=== PATIENT | male | born 1960 | race Caucasian/White ===

== ENCOUNTER 2019-09-28 11:02 | Inpatient (IN) | payer BC, SELFPAY ==
[2019-09-28] MEDS ORDERED: Zolpidem Tartrate 5 MG TAB PO PRN (12:27)
[2019-09-28] MEDS ORDERED: hydrALAZINE 20 MG/ML VIAL SLOW IVP PRN (12:27)
[2019-09-28] MEDS ORDERED: Ondansetron PF 4 MG/2 ML Vial IVP PRN ×2 (12:27)
[2019-09-28] MEDS ORDERED: Acetaminophen 325 MG TAB PO PRN (12:27)
[2019-09-28] MEDS ORDERED: Ondansetron ODT 4 MG TAB PO PRN ×2 (12:27)
[2019-09-28] MEDS ORDERED: Non-Formulary Item 1 EACH (Levalbuterol Tartrate [Xopenex Hfa Inhaler] 1 PUFF) INH PRN (12:28)
--- NOTE | 2019-09-28 13:58 | HP ---
PRIMARY CARE PHYSICIAN: Chilango Levin MD. CHIEF COMPLAINT: Chest pressure. HISTORY OF PRESENT ILLNESS: Mr. Abreu is a very pleasant 58-year-old gentleman, who has a history of hypertension and hypothyroidism. He says that last Wednesday, he started having problems where he was having indigestion like feeling after he ate, and then he had noticed some pressure in his chest off and on when doing certain tasks. Then, last night, he had some indigestion while watching TV and it took a couple of hours to go away, then he was going to meet his sports trainer today at the park, and on the way there, he started having pressure again. He thought the exercise would make it better, but it did not. As a result, he went to see his primary care physician. They did some lab work and found that his troponin was slightly elevated. He was then sent to the [facility]. There, he was evaluated by Dr. Justin Ann. He underwent cardiac catheterization and was found to have 3- vessel coronary artery disease including the left anterior descending artery and he is being transferred here for bypass surgery. Currently, the patient does not have any complaints. He denies any chest pain. No shortness of breath. No nausea. No vomiting. When he had the chest pain, he did not have any associated symptoms and the pain would last a few hours and then resolve with rest. The patient also denies any leg pain or leg swelling and no other complaints. REVIEW OF SYSTEMS: All systems were reviewed and are negative except for that mentioned in the history of present illness. PAST MEDICAL HISTORY: Significant for hypothyroidism, hypertension, insomnia, obstructive sleep apnea, and elevated PSA. PAST SURGICAL HISTORY: He had repair of facial bone fracture due to a rugby injury. He had a cyst removed from his wrist in 1991. ALLERGIES: NO KNOWN DRUG ALLERGIES. SOCIAL HISTORY: He is single. No children. He is a nonsmoker. He occasionally drinks alcohol. No drug use. FAMILY HISTORY: Significant for obstructive sleep apnea, cataracts, and osteoarthritis, and he said his family members of heart disease in their late age of 70s and 80s. MEDICATIONS: Prior to admission included: 1. Atenolol 25 mg daily. 2. Eszopiclone 3 mg at bedtime. 3. Fenofibrate 160 mg daily. 4. Flonase nasal spray as needed. 5. Hydralazine 100 mg q.8. 6. Potassium chloride 20 mEq daily. 7. Levothyroxine 150 mcg daily. 8. Losartan 100 mg daily. 9. Nifedipine XL 60 mg daily. 10. Xopenex inhaler as needed. PHYSICAL EXAMINATION: GENERAL: He is alert and oriented. He appears to be in no acute distress. He is well developed and well nourished. VITAL SIGNS: Blood pressure was 159/84, heart rate 74, respiratory rate of 16, temperature is 97.8, O2 saturation is 97% on room air. HEENT: Pupils are equal, round, and reactive. Extraocular muscles are intact. His sclerae anicteric. Throat; no erythema, no exudates. NECK: No adenopathy. No bruits. LUNGS: Clear to auscultation. There is no wheezing. No rales. No rhonchi. CARDIOVASCULAR: He has a normal S1, S2. There is no S3 or S4. No murmurs, clicks, or rubs. ABDOMEN: Obese. It is soft, nontender, and nondistended. Positive for bowel sounds. No rebound. No guarding. No organomegaly. EXTREMITIES: There is no edema. No calf tenderness. No joint effusions. NEUROLOGIC: Cranial nerves 2 through 12 are intact. Muscle strength is 5/5 in both his upper and lower extremities. SKIN AND INTEGUMENT: No skin changes. No rash. LABS AND IMAGING: He had a CBC with white blood cell count 8.6, hemoglobin 15.1, hematocrit is 44.5, platelet count is 361. Chemistry panel is currently pending, but the troponin was 0.56. He had an EKG done at [place] which was sinus rhythm, the rate was in the 70s. Other than that, Q-wave in lead III. Otherwise normal. This is by my reading. Chest x-ray was reported as no infiltrates or effusions. ASSESSMENT AND PLAN: 1. This is a pleasant 58-year-old gentleman, who had presented to the emergency room with chest pain. He underwent urgent cardiac catheterization and was found to have 3-vessel coronary artery disease. This was at [facility] and has been transferred to our facility for bypass surgery. He will be admitted. Cardiology as well as Vascular Surgery will be consulted. We will get carotid Dopplers in preparation for bypass surgery. Continue aspirin, nitrates, and beta-rudy as tolerated. 2. Hypertension. We will continue his home medications for blood pressure and have p.r.n. hydralazine available. 3. Hypothyroidism. The patient appears to be clinically euthyroid. We will continue Synthroid and the patient will be placed on DVT and GI prophylaxis. Job ID: [id number]
[2019-09-28] MEDS: Nitroglycerin 2% Ointment 1 INCH/1 GM Packet TOP SCH ×2 (14:01→21:29)
[2019-09-28] MEDS ORDERED: HYDRALAZINE HCL PO SCH (15:00)
[2019-09-28 15:15] LABS: Troponin I 0.268 ng/mL (< 0.028)
[2019-09-28] MEDS: hydrALAZINE 25 MG TAB PO SCH ×2 (15:19→21:29)
[2019-09-28] MEDS: Carvedilol 6.25 MG TAB PO SCH (17:53)
[2019-09-28] MEDS ORDERED: Communication Order-Pharmacy FS ONE (18:14)
[2019-09-28 18:51] LABS: Hemoglobin A1c 5.3 % (4.0-6.0)
[2019-09-28 19:03] LABS: Anion Gap 12 mmol/L (10-20); BUN (Urea Nitrogen) 19 mg/dL (8.4-25.7); Calc. Creatinine Clearance 125 mL/min (70-130); Calcium 9.4 mg/dL (7.8-10.44); Carbon Dioxide 24 mmol/L (22-29); Chloride 107 mmol/L (98-107); Cholesterol 241 mg/dl (< 200 Desired); Estimated GFR-MDRD 83; Glucose 121 mg/dL (70-105); HDL Cholesterol 37 mg/dL (>60 Neg Risk); Potassium 3.7 mmol/L (3.5-5.1); Sodium 139 mmol/L (136-145)
--- NOTE | 2019-09-28 19:35 | CON ---
DATE OF CONSULTATION: HISTORY OF PRESENT ILLNESS: This is a 58-year-old gentleman, transferred from [facility] after presenting over there yesterday with some pressure in his chest with a troponin elevation of about 4. He underwent cardiac catheterization by Dr. Ann and had severe 3-vessel disease, particularly with a lot of distal disease creating a situation where he will be in incomplete revascularization. Risk factors include a family history of heart disease, but typically involving people in their 80s. He has a history of hypertension that was not very well controlled until the last couple of months. After much teeth pulling, he admitted to having an elevated cholesterol for many years, however, about 15 years ago, tried some of the statins and could not tolerate them and then went on a fast for 1 year and improved his cholesterol level, however, does not know what numbers that he was running. He sees a family physician who comes here in the community and I do not have access to any laboratory values. Otherwise, he denies any history of diabetes mellitus. HOME MEDICATIONS: 1. Xopenex. 2. Flonase. 3. Hydralazine, dose unknown. 4. Synthroid 150 mcg a day. 5. Lunesta 3 mg at bedtime. 6. Fenofibrate tablet daily. 7. Losartan daily, dose unknown. 8. Atenolol daily, dose unknown. 9. Nifedipine. 10. Procardia XL 60 mg daily. 11. Potassium. 12. K-Dur 20 mEq daily. ALLERGIES: HE REPORTS NO ALLERGIES, BUT DOES HAVE THE STATIN INTOLERANCE, BUT HE IS NOT SURE WHICH STATINS HE HAS TRIED OR DOSAGES. PAST SURGICAL HISTORY: Facial fracture as a young man playing rugby. He has also had a cyst removed from his hand and a cataract in 1 eye. 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 He lives alone. His next of kin includes mother who lives in town. The patient has never smoked. PHYSICAL EXAMINATION: GENERAL: He is alert and cooperative gentleman. VITAL SIGNS: Height 5 feet 9 inches, weight 228. NECK: No carotid bruits. CARDIAC: Regular rate and rhythm. No murmurs. LUNGS: Clear to auscultation. ABDOMEN: Obese. Nontender. No aneurysm. EXTREMITIES: He has palpable posterior tibial pulses bilaterally. He has a dressing on the right groin and dressing on the right wrist. He has no peripheral edema. NEUROLOGIC: Unremarkable. LABORATORY STUDIES: I have reviewed his cardiac catheterization and his ejection fraction appears normal. He has not had a cardiac echo by Dr. Ann, but has no cardiac murmurs. ASSESSMENT AND PLAN: He has a history of hypertension that has been poorly controlled, probably I would suggest that he will have some left ventricular hypertrophy which may be important in regard to accessing his circumflex system. His OM1 is small and diffusely diseased, non bypassable. His OM2 is large proximally, but diffusely and severely diseased distally. His OM3 is small and may not be large enough to graft with some disease in the 50% to 80% at its origin. The right coronary artery has 2 proximal 90% lesions and then a severely and diffusely diseased PDA that cannot be grafted. He has mild disease in the posterior lateral. The LAD has a proximal 90% stenosis just after the takeoff of a diagonal which has a 90% stenosis. Potential targets include an LAD diagonal main right coronary artery and possibly distal circumflex. I have had a long discussion with the patient concerning his diffuse coronary disease and the real need to control his cholesterol which I suspect is quite high and will be checked this evening. The patient is adamant that he does not want to take a statin no matter what, and so he will have to visit with his traveling auditor in regard to possible injectable cholesterol medication. Job ID: [id number]
[2019-09-28] MEDS ORDERED: Famotidine 20 MG TAB PO SCH (21:00)
--- NOTE | 2019-09-28 21:23 | ULT ---
Carotid duplex sonogram HISTORY: Vascular disease. FINDINGS: Right: Color and spectral Doppler evaluation, peak systolic velocity of 81 cm/s, and IC to CC ratio o f 0.6 suggest no hemodynamically significant stenosis within the extracranial right ICA. Antegrade flow within the vertebral artery. Left: Color and spectral Doppler evaluation, peak systolic velocity of 90 cm/s, and IC to CC ratio of 0.7 suggest no hematemesis significant stenosis within the extracranial left ICA. Antegrade flow within the vertebral artery. IMPRESSION : No significant plaque evident. No sonographic evidence of significant extracranial ICA stenosis.
[2019-09-29] MEDS ORDERED: Albuterol Sulfate 1.25 MG/3 ML NEB NEB PRN (02:15)
[2019-09-29 04:57] LABS: #Eosinphils 0.2 thou/uL (0.0-0.7); #Lymphocytes 2.1 thou/uL (1.20-3.40); #Monocytes 0.8 thou/uL (0.11-0.59); #Neutrophils 7.1 thou/uL (1.40-6.50); %Basophils 0.3 % (0.0-1.0); %Eosinophils 1.9 % (0.0-10.0); %Lymphocytes 20.4 % (21.0-51.0); %Neutrophils 69.4 % (42.0-75.0); Hemoglobin 13.7 g/dL (14.0-18.0); Mean Corpuscular HGB CONC 34.3 g/dL (32.0-36.0); Mean Corpuscular Hemoglobin 31.3 pg (27.0-31.0); Mean Corpuscular Volume 91.5 fL (78.0-98.0); Mean Platelet Volume 7.8 fL (7.4-10.4); Platelet Count 273 thou/uL (130-400); RBC Distribution Width 12.7 % (11.5-14.5); Red Blood Cell (RBC) Count 4.38 mill/uL (4.70-6.10); White Blood Cell (WBC) Count 10.2 thou/uL (4.8-10.8)
[2019-09-29] MEDS: Carvedilol 6.25 MG TAB PO SCH (05:08)
[2019-09-29 05:18] LABS: Anion Gap 11 mmol/L (10-20); BUN (Urea Nitrogen) 19 mg/dL (8.4-25.7); Calc. Creatinine Clearance 115 mL/min (70-130); Calcium 9.1 mg/dL (7.8-10.44); Carbon Dioxide 26 mmol/L (22-29); Chloride 108 mmol/L (98-107); Estimated GFR-MDRD 76; Glucose 100 mg/dL (70-105); Potassium 3.7 mmol/L (3.5-5.1); Sodium 141 mmol/L (136-145)
[2019-09-29] MEDS: Nitroglycerin 2% Ointment 1 INCH/1 GM Packet TOP SCH (05:29)
[2019-09-29] MEDS ORDERED: Ampicillin 2 GM VIAL ONE (06:05)
[2019-09-29] MEDS ORDERED: Nitroglycerin 50 MG/250 ML BOT 250 ML ONE ×2 (06:32→11:41)
[2019-09-29] MEDS ORDERED: Norepinephrine 4 MG/4 ML VIAL ONE (06:32)
[2019-09-29] MEDS ORDERED: Fentanyl 100 MCG/2 ML VIAL ONE (06:33)
[2019-09-29] MEDS ORDERED: Albumin 5% 500 ML ONE (06:33)
[2019-09-29] MEDS ORDERED: Midazolam HCl 2 mg/2 ml Vial ONE ×2 (06:33→07:24)
[2019-09-29] MEDS ORDERED: Heparin 10,000 UNITS/1 ML VIAL 30,000 UNITS in Sodium Chloride 0.9% 1,000 ML FS SCH (07:00)
[2019-09-29] MEDS ORDERED: Midazolam HCl 5 mg/5 ml Vial ONE (07:12)
[2019-09-29] MEDS ORDERED: Fentanyl 250 MCG/5 ML VIAL ONE (07:12)
[2019-09-29] MEDS ORDERED: Non-Formulary Item 1 EACH (Fenofibrate [Fenofibrate] 1 TAB) PO SCH (09:00)
[2019-09-29] MEDS ORDERED: NIFEdipine XL 60 MG TAB PO SCH (09:00)
[2019-09-29] MEDS ORDERED: Non-Formulary Item 1 EACH (Losartan Potassium [Losartan Potassium] 1 TAB) PO SCH (09:00)
[2019-09-29] MEDS ORDERED: Fenofibrate Nanocrystallized 145 MG TAB PO SCH (09:00)
[2019-09-29] MEDS ORDERED: Levothyroxine 150 MCG TAB PO SCH (09:00)
[2019-09-29] MEDS ORDERED: Potassium Chloride 20 MEQ TAB PO SCH (09:00)
[2019-09-29] MEDS ORDERED: Fluticasone Propionate Nasal Spray 16 gm Bottle NASAL SCH ×2 (09:00)
[2019-09-29] MEDS ORDERED: Enoxaparin Sodium 40 MG/0.4 ML SYRINGE SC SCH (09:00)
[2019-09-29] MEDS ORDERED: Losartan 25 MG TAB PO SCH (09:00)
[2019-09-29] MEDS ORDERED: Vecuronium 10 MG VIAL ONE ×2 (09:12→14:01)
[2019-09-29] MEDS ORDERED: PHENYLEPHRINE-NS 100 MCG/ML 10 ML SYRINGE ONE (09:24)
[2019-09-29] MEDS ORDERED: Promethazine HCl 25 MG/ML VIAL IM PRN (11:43)
[2019-09-29] MEDS ORDERED: HYDROcodone/Acetaminophen 5/325 mg Tablet PO PRN (11:43)
[2019-09-29] MEDS ORDERED: Bisacodyl 10 MG SUPP PR PRN (11:43)
[2019-09-29] MEDS ORDERED: Ondansetron PF 4 MG/2 ML Vial IVP PRN (11:43)
[2019-09-29] MEDS ORDERED: Norepinephrine 8 MG/0.9% NS 250 ML IVPB PRN (11:43)
[2019-09-29] MEDS ORDERED: Hetastarch 6% 500 ML 500 ML IVPB PRN (11:43)
[2019-09-29] MEDS ORDERED: Post-Op Insulin Drip Protocol IVPB ONE (11:43)
[2019-09-29] MEDS ORDERED: Guaifenesin DM 100-10/5 ML UDCUP PO PRN (11:43)
[2019-09-29] MEDS ORDERED: niCARdipine 25 MG in Sodium Chloride 0.9% 250 ML 240 ML IVPB PRN (11:43)
[2019-09-29] MEDS ORDERED: Magnesium 2 GM/50 ML 2 GM in Premix Bag 1 BAG IVPB SCH (11:43)
[2019-09-29] MEDS ORDERED: Nitroglycerin 50 MG/250 ML BOT 250 ML IVPB PRN (11:43)
[2019-09-29] MEDS ORDERED: Fentanyl 100 MCG/2 ML VIAL SLOW IVP PRN ×2 (11:43)
[2019-09-29] MEDS ORDERED: DOPamine 400 MG/D5W 250 ML 250 ML IVPB PRN (11:43)
[2019-09-29] MEDS ORDERED: Bisacodyl 5 MG TAB PO PRN (11:43)
[2019-09-29] MEDS ORDERED: Mag-Al 1200 mg/1200 mg/30 ML UDCUP PO PRN (11:43)
[2019-09-29] MEDS ORDERED: Acetaminophen 325 MG TAB PO PRN (11:43)
[2019-09-29] MEDS ORDERED: Morphine 4 MG/ML VIAL ONE (11:51)
[2019-09-29] MEDS ORDERED: Insulin Regular 300 UNITS/3 ML VIAL ONE ×2 (11:52→11:54)
--- NOTE | 2019-09-29 11:53 | RAD ---
Chest one view HISTORY: Heart surgery. FINDINGS: Cardiac silhouette is magnified and enlarged. Pulmonary vasculature is engorged and accentu ated by shallow inspiration. Parenchymal opacity at the left lung base likely related to atelectasis from recent surgery. Mediastinum is midline. Endotracheal catheter in place. Mediastinal drain and left thoracostomy tube in place. Tip of a right subclavian central venous catheter projects over the right atrium. No significant residual pneumothorax. IMPRESSION : Recent postoperative changes mediastinum. Lines and tubes are in good radiographic position.
[2019-09-29 11:54] LABS: Actual Bicarbonate (HCO3a) 22.5 mEq/L (22-28); Base Excess (BEa) -3.6 mEq/L (-2.0 to +3.0); CO2 Tension 44.4 mmHg (35.0-45.0); Calcium, Ionized 1.18 mmol/L (1.12-1.30); Carboxyhemoglobin (COHb) 0.9 gm% (0.0-3.0); Hemoglobin (Hb) 12.7 g/dL (14.0-18.0); O2 Tension (PaO2) 67.6 mmHg (80.0-100.0); Potassium - ABG Lab 3.89 mmol/L (3.70-5.30); pH, Arterial 7.32 (7.35-7.45)
[2019-09-29 11:56] LABS: Puncture Site ALINE
[2019-09-29 12:06] LABS: Hemoglobin 12.3 g/dL (14.0-18.0); Mean Corpuscular HGB CONC 33.8 g/dL (32.0-36.0); Mean Corpuscular Volume 91.7 fL (78.0-98.0); Platelet Count 222 thou/uL (130-400); RBC Distribution Width 12.7 % (11.5-14.5); Red Blood Cell (RBC) Count 3.98 mill/uL (4.70-6.10); White Blood Cell (WBC) Count 20.9 thou/uL (4.8-10.8)
[2019-09-29 12:10] LABS: INR-International Normal Ratio 1.3; PTT 29.8 SEC (22.9-36.1); Prothrombin Time 15.7 SEC (12.0-14.7)
[2019-09-29 12:14] LABS: Anion Gap 13 mmol/L (10-20); BUN (Urea Nitrogen) 18 mg/dL (8.4-25.7); Calc. Creatinine Clearance 114 mL/min (70-130); Calcium 8.3 mg/dL (7.8-10.44); Carbon Dioxide 20 mmol/L (22-29); Chloride 112 mmol/L (98-107); Estimated GFR-MDRD 75; Glucose 153 mg/dL (70-105); Potassium 3.9 mmol/L (3.5-5.1); Sodium 141 mmol/L (136-145)
[2019-09-29] MEDS ORDERED: Dextrose 50% Abboject 50 ML SYRINGE SLOW IVP PRN (12:23)
[2019-09-29] MEDS ORDERED: HUMULIN R 100 UNITS in Sodium Chloride 0.9% 100 ML IVPB SCH (12:23)
[2019-09-29] MEDS ORDERED: Dextrose 5% in Water 1,000 ML IV PRN (12:23)
[2019-09-29 12:27] LABS: Band 14 % (5-11); Lymphocytes 8 % (21-51); MDiff Complete? YES; Metamyelocyte 1 % (0-0); Monocytes 2 % (0-10); Neutrophil 74 % (42-75); Platelet Morphology Comment Appears Adequate; RBC Morphology Normal; Reactive Lymphocytes 1 % (0-10)
[2019-09-29] MEDS: Ketorolac Tromethamine 30 MG/ML VIAL IVP SCH ×3 (12:39→23:27)
[2019-09-29] MEDS: CEFAZOLIN 2 GM in Premix Bag 1 BAG IVPB SCH ×2 (12:40→21:09)
[2019-09-29] MEDS: Potassium Chloride 20 MEQ/100 ML PREMIX BAG IVPB PRN ×2 (12:46→17:35)
[2019-09-29] MEDS: Morphine 2 MG/ML SYRINGE SLOW IVP PRN ×2 (12:48→23:26)
[2019-09-29 13:53] LABS: Actual Bicarbonate (HCO3a) 23.2 mEq/L (22-28); Base Excess (BEa) -2.7 mEq/L (-2.0 to +3.0); CO2 Tension 44.4 mmHg (35.0-45.0); Calcium, Ionized 1.17 mmol/L (1.12-1.30); Carboxyhemoglobin (COHb) 0.6 gm% (0.0-3.0); Hemoglobin (Hb) 13.2 g/dL (14.0-18.0); O2 Tension (PaO2) 95.3 mmHg (80.0-100.0); Potassium - ABG Lab 3.69 mmol/L (3.70-5.30); Puncture Site ALINE; pH, Arterial 7.34 (7.35-7.45)
[2019-09-29] MEDS ORDERED: Lidocaine 2% PF 5 ML VIAL ONE (14:01)
[2019-09-29] MEDS ORDERED: Potassium Chloride 60 MEQ/30 ML VIAL ONE (14:01)
[2019-09-29] MEDS ORDERED: Protamine Sulfate 250 MG/25 ML VIAL ONE (14:01)
[2019-09-29] MEDS ORDERED: Ondansetron PF 4 MG/2 ML Vial ONE (14:01)
[2019-09-29] MEDS ORDERED: Aminocaproic Acid 5 GM/20 ML VIAL ONE (14:01)
[2019-09-29] MEDS ORDERED: Cardioplegic Soln 1,000 ML BAG ONE (14:01)
[2019-09-29] MEDS ORDERED: PROPOFOL 200 MG/20 ML VIAL ONE (14:01)
[2019-09-29] MEDS ORDERED: Rocuronium Bromide 10 MG/ML (10ML VIAL) ONE (14:01)
[2019-09-29] MEDS ORDERED: Heparin 5,000 UNITS/ML VIAL ONE (14:01)
[2019-09-29] MEDS ORDERED: Calcium Chloride 1 GM/10 ML Abboject SYRINGE ONE (14:01)
[2019-09-29] MEDS ORDERED: Sodium Bicarb 50 MEQ/50 ML Abboject 8.4% SYRINGE ONE (14:01)
[2019-09-29] MEDS ORDERED: Labetalol HCl 100 MG/20 ML VIAL ONE (14:01)
[2019-09-29] MEDS ORDERED: Nitroglycerin 50 MG/250 ML BOT ONE (14:01)
[2019-09-29] MEDS ORDERED: Papaverine 60 MG/2 ML VIAL ONE (14:01)
[2019-09-29] MEDS ORDERED: Thrombin 5000 UNITS/5 ML VIAL ONE (14:01)
[2019-09-29] MEDS ORDERED: Heparin 30,000 units/30 ml VIAL ONE (14:01)
[2019-09-29] MEDS ORDERED: Magnesium Sulfate 1 GM/2 ML VIAL ONE (14:01)
--- NOTE | 2019-09-29 14:14 | PDOC.HOSPP ---
- Subjective Encounter Date: 09/29/19 Encounter Time: 13:45 Subjective: Patient seen and examined for USA/CAD. s/p CABG. On Vent. No overnight events - Objective Vital Signs & Weight: Vital Signs (12 hours) Temp Pulse Resp BP BP Pulse Ox 09/29/19 14:00 85 20 97 09/29/19 12:51 98.0 F 09/29/19 12:16 18 96 09/29/19 11:47 83 132/76 09/29/19 05:08 146/82 H 09/29/19 03:36 98.0 F 87 18 144/75 H 95 Weight Weight 228 lb 4.8 oz Most Recent Monitor Data Heart Rate from ECG 85 NIBP 131/82 NIBP BP-Mean 98 Respiration from ECG 25 SpO2 96 I&O: 09/28/19 09/29/19 09/30/19 06:59 06:59 06:59 Intake Total 200 Output Total 350 Balance -150 Result Diagrams: 09/29/19 11:44 09/29/19 11:44 Additional Labs: Accuchecks 09/29/19 09/29/19 09/29/19 11:46 10:46 10:05 POC Glucose 150 H 153 H 143 H 09/29/19 09/29/19 09/29/19 09:38 09:04 08:09 POC Glucose 137 H 128 H 119 H EKG Reviewed by me: Yes (Tele SR/PVCs) Hospitalist ROS - Review of Systems ROS unobtainable: due to endotracheal tube - Medication Medications: Active Medications Generic Name Dose Route Start Last Admin Trade Name Freq PRN Reason Stop Dose Admin Cefazolin Sodium/Dextrose 2 gm 50 mls @ 100 mls/hr 09/29/19 14:00 09/29/19 12 :40 / Device IVPB 09/30/19 06:29 50 mls Q8HR EZEQUIEL Administration Magnesium Sulfate 2 gm/ Device 50 mls @ 50 mls/hr 09/29/19 11:43 09/29/19 12: 45 IVPB 09/29/19 15:00 50 mls NOW EZEQUIEL Administration Ketorolac Tromethamine 15 mg 09/29/19 12:00 09/29/19 12:39 Toradol IVP 10/02/19 12:01 15 mg Q6HR EZEQUIEL Administration Morphine Sulfate 2 mg 09/29/19 11:43 09/29/19 12:48 Morphine SLOW IVP 2 mg Q15MIN PRN Administration Severe Pain (7-10) Potassium Chloride 20 meq 09/29/19 11:43 09/29/19 12:46 Kcl IVPB 20 meq PRN PRN Administration K level </= 4.0 - Exam General Appearance: NAD Heart: RRR, no rubs Respiratory: no wheezes, no ronchi Gastrointestinal: soft, non-distended Extremities: no cyanosis Neurological - other findings: Neuro/Psych - cannot assess due to ET Hosp A/P - Plan DVT proph w/SCDs USA/CAD s/p CABG 09/28 Obesity BMI 33.7 HTN HLD Hypothyroidism CARMELITA PLAN: Cont CCU care Cont ASA/Statins DVT/GI prophylaxis Cont other meds as below
--- NOTE | 2019-09-29 14:29 | CON ---
DATE OF CONSULTATION: 09/29/2019 REASON FOR CONSULTATION: Severe CAD. HISTORY OF PRESENT ILLNESS: Mr. Abreu is a 58-year-old gentleman, who was seen and evaluated by Dr. Justin Ann in an outlying facility. He underwent coronary angiography with sign of severe underlying coronary artery disease. He was transferred to [facility] for further disposition. The patient had no previous history of underlying coronary artery disease. PAST MEDICAL HISTORY: Hypertension, obstructive sleep apnea, and elevated PSA. PAST SURGICAL HISTORY: Facial surgery. ALLERGIES: NONE. SOCIAL HISTORY: No current tobacco or alcohol use. He has no current children. REVIEW OF SYSTEMS: A 10-point review of systems is reviewed and is as above, otherwise negative. PHYSICAL EXAMINATION: GENERAL: Patient is a pleasant male who is in no acute distress. The patient appears their stated age. VITAL SIGNS: Blood pressure 132/76, pulse 83, and respirations 20. NEUROLOGIC: The patient is alert and oriented x3 with no focal neurologic deficits. HEENT: Sclerae without icterus. Mouth has moist mucous membranes with normal pallor. NECK: No JVD. Carotid upstroke brisk. No bruits bilaterally. LUNGS: Clear to auscultation with unlabored respirations. BACK: No scoliosis or kyphosis. CARDIAC: Regular rate and rhythm with normal S1 and S2. No S3 or S4 noted. No significant rubs, murmurs, thrills, or gallops noted throughout the precordium. PMI is not displaced. There is no parasternal heave. ABDOMEN: Soft, nontender, nondistended. No peritoneal signs present. No hepatosplenomegaly. No abnormal striae. EXTREMITIES: 2+ femoral and 2+ dorsalis pedis pulses. No cyanosis, clubbing, or edema. SKIN: No gross abnormalities. PERTINENT LABS: CK and troponin negative. Hemoglobin 13.7. IMPRESSION: Severe coronary artery disease. RECOMMENDATIONS: Mr. Abreu will be evaluated by Dr. Miguelito Chen. He will undergo bypass surgery on 09/29/2019. We will continue to follow with you. Job ID: [id number]
[2019-09-29] MEDS: hydrALAZINE 20 MG/ML VIAL SLOW IVP PRN (14:30)
[2019-09-29] MEDS: HYDROcodone/Acetaminophen 5/325 mg Tablet PO PRN (15:43)
--- NOTE | 2019-09-29 16:08 | EKG ---
Test Reason : POST CABG Blood Pressure : / mmHG Vent. Rate : 082 BPM Atrial Rate : 082 BPM P-R Int : 164 ms QRS Dur : 098 ms QT Int : 390 ms P-R-T Axes : 036 072 009 degrees QTc Int : 455 ms Normal sinus rhythm Nonspecific T wave abnormality Prolonged QT Abnormal ECG Confirmed by CATINA SANDHU ([id number]) on 09/29/2019 4:07:53 PM Referred By: SHANA Confirmed By:CATINA SANDHU
[2019-09-29] MEDS: Insulin Regular 300 UNITS/3 ML VIAL SC PRN (16:16)
[2019-09-29 17:02] LABS: Hemoglobin 13.1 g/dL (14.0-18.0)
[2019-09-29 17:21] LABS: Potassium 3.9 mmol/L (3.5-5.1)
[2019-09-29] MEDS ORDERED: Atorvastatin Calcium 20 MG TAB PO SCH (21:00)
[2019-09-29] MEDS: Famotidine/PF 20 mg/2ml Vial SLOW IVP SCH (21:08)
[2019-09-30] MEDS: HYDROcodone/Acetaminophen 5/325 mg Tablet PO PRN ×3 (03:03→15:15)
[2019-09-30 03:57] LABS: #Monocytes 1.4 thou/uL (0.11-0.59); #Neutrophils 12.6 thou/uL (1.40-6.50); %Basophils 0.1 % (0.0-1.0); %Eosinophils 0.2 % (0.0-10.0); %Lymphocytes 12.6 % (21.0-51.0); %Monocytes 8.5 % (0.0-10.0); %Neutrophils 78.5 % (42.0-75.0); Hemoglobin 12.2 g/dL (14.0-18.0); Mean Corpuscular Hemoglobin 31.7 pg (27.0-31.0); Mean Corpuscular Volume 93.2 fL (78.0-98.0); Mean Platelet Volume 8.7 fL (7.4-10.4); Platelet Count 223 thou/uL (130-400); Red Blood Cell (RBC) Count 3.87 mill/uL (4.70-6.10)
[2019-09-30 04:14] LABS: Anion Gap 13 mmol/L (10-20); BUN (Urea Nitrogen) 26 mg/dL (8.4-25.7); Calc. Creatinine Clearance 88 mL/min (70-130); Calcium 8.2 mg/dL (7.8-10.44); Carbon Dioxide 23 mmol/L (22-29); Chloride 107 mmol/L (98-107); Estimated GFR-MDRD 55; Glucose 114 mg/dL (70-105); Sodium 139 mmol/L (136-145)
--- NOTE | 2019-09-30 05:56 | OP ---
DATE OF PROCEDURE: 09/29/2019 PREOPERATIVE DIAGNOSIS: Coronary artery disease. POSTOPERATIVE DIAGNOSIS: Coronary artery disease. PROCEDURES PERFORMED: Coronary artery bypass graft x4 with good quality left internal mammary artery to the LAD which measured probably 1.5 to 2 mm and was diseased at the site of anastomosis as were all of the distal vessels. Saphenous vein good quality on the large size to a 1.5 mm heavily calcified diagonal, 1.5 mm distal circumflex, and 1.5 to 2 mm posterior lateral. MANAGER EVENT: Ronnie. TRANSFUSION: None. DESCRIPTION OF PROCEDURE: After adequate anesthesia had been obtained, the patient was prepped and draped. I did an endovascular vein harvest of the left greater saphenous vein and then performed a median sternotomy, left internal mammary artery being harvested, and then heparin given. The left pleura was entered in its midportion. Following this, the mammary was passed posterior to the thymus gland. Aorta and right atrium were cannulated and cardiopulmonary bypass begun. The vessels were inspected for grafting. Aorta was crossclamped, and after a liter of cold blood cardioplegia, the 4-distal anastomosis were completed. Crossclamp was removed. The patient defibrillated and the partial occluding clamp placed and 2 proximal anastomosis performed on the aortic root and marked with rings. The diagonal vein graft was anastomosed to the side of the distal circumflex vein graft about 3 cm from the aorta. All grafts lie nicely. The patient being weaned from cardiopulmonary bypass. Cannulas were removed and protamine given systemically. Aortic cannulation site was secured with a 4-0 Prolene suture. The sternum was then reapproximated over a mediastinal and left pleural drain using vancomycin paste and platelet rich blood on the sternal edges after closing with #7 wire. Subcutaneous tissue and skin were closed in layers using platelet poor plasma. The patient is to be taken to the ICU in guarded condition. Job ID: [id number]
[2019-09-30] MEDS: Levothyroxine 150 MCG TAB PO SCH (06:00)
[2019-09-30] MEDS: Ketorolac Tromethamine 30 MG/ML VIAL IVP SCH ×4 (06:00→23:06)
[2019-09-30] MEDS: CEFAZOLIN 2 GM in Premix Bag 1 BAG IVPB SCH (06:01)
[2019-09-30] MEDS: hydrALAZINE 20 MG/ML VIAL SLOW IVP PRN ×3 (06:02→23:06)
[2019-09-30] MEDS: Famotidine/PF 20 mg/2ml Vial SLOW IVP SCH (08:34)
[2019-09-30] MEDS: Aspirin 325 MG TAB PO SCH (08:34)
[2019-09-30] MEDS: Insulin Regular 300 UNITS/3 ML VIAL SC PRN (08:35)
--- NOTE | 2019-09-30 09:25 | RAD ---
CHEST ONE VIEW: History: Follow up post op open heart. FINDINGS: Endotracheal tube has been removed. Chest tubes and right subclavian catheter in place. There is some bilateral vascular congestion with some patchy linear and parenchymal changes in the perihilar regio ns and lower lung zones, probably representing some partial atelectasis with evidence for some left p leural effusion. No significant pneumothorax. IMPRESSION: Overall stable appearing post-operative changes. Continued short term follow up. POS: [facility]
[2019-09-30] MEDS ORDERED: Atorvastatin Calcium 20 MG TAB PO SCH (09:51)
[2019-09-30] MEDS ORDERED: Lisinopril 5 MG TAB PO SCH (11:00)
[2019-09-30] MEDS ORDERED: Carvedilol 3.125 MG TAB PO SCH (11:00)
--- NOTE | 2019-09-30 16:13 | PDOC.HOSPP ---
- Subjective Encounter Date: 09/30/19 Encounter Time: 14:30 Subjective: Patient seen and examined for CAD. Pain controlled. Extubated. no CP/SOB. No new complaints. No overnight events - Objective Vital Signs & Weight: Vital Signs (12 hours) Temp Pulse Pulse Pulse Resp BP BP 09/30/19 15:39 106 H 101 H 154/87 H 09/30/19 14:36 101 H 154/87 H 09/30/19 13:02 101 H 22 H 09/30/19 12:00 98.6 F 09/30/19 10:59 98 150/88 H 09/30/19 08:00 09/30/19 06:56 09/30/19 06:02 85 BP Pulse Ox Pulse Ox Pulse Ox 09/30/19 15:39 144/59 H 90 L 93 L 09/30/19 14:36 09/30/19 13:02 92 L 09/30/19 12:00 09/30/19 10:59 09/30/19 08:00 95 09/30/19 06:56 92 L 09/30/19 06:02 Weight Weight 228 lb 9.91 oz Most Recent Monitor Data Heart Rate from ECG 103 NIBP 154/87 NIBP BP-Mean 109 Respiration from ECG 28 SpO2 90 I&O: 09/29/19 09/30/19 10/01/19 06:59 06:59 06:59 Intake Total 2097.5 140 Output Total 1740 525 Balance 357.5 -385 Result Diagrams: 09/30/19 03:15 09/30/19 03:15 Additional Labs: Accuchecks 09/29/19 09/29/19 09/29/19 23:58 20:37 16:14 POC Glucose 121 H 112 H 150 H EKG Reviewed by me: Yes (Tele SR) Hospitalist ROS - Review of Systems Respiratory: denies: cough, dry, shortness of breath, hemoptysis, SOB with excertion, pleuritic pain, sputum, wheezing, other Cardiovascular: denies: chest pain, palpitations, orthopnea, paroxysmal noc. dyspnea, edema, light headedness, other - Medication Medications: Active Medications Generic Name Dose Route Start Last Admin Trade Name Freq PRN Reason Stop Dose Admin Hydrocodone Bitart/Acetaminophen 1 tab 09/29/19 11:43 04/17/20 21:16 Norman 5/325 PO 1 tab Q4H PRN Administration Moderate Pain (4-6) Hydrocodone Bitart/Acetaminophen 2 tab 09/29/19 11:43 09/30/19 15:15 Norman 5/325 PO 2 tab Q4H PRN Administration Severe Pain (7-10) Albuterol/Ipratropium 3 ml 09/30/19 13:00 09/30/19 13:02 Duoneb EZPAP 3 ml [id number] EZEQUIEL Administration Aspirin 325 mg 09/30/19 09:00 09/30/19 08:34 Aspirin PO 325 mg DAILY EZEQUIEL Administration Hydralazine HCl 10 mg 09/29/19 11:43 09/30/19 14:36 Apresoline SLOW IVP 10 mg Q6H PRN Administration To Maintain SBP< 140mmHG Ketorolac Tromethamine 15 mg 09/29/19 12:00 09/30/19 12:28 Toradol IVP 10/02/19 12:01 15 mg Q6HR EZEQUIEL Administration Levothyroxine Sodium 150 mcg 09/30/19 06:00 09/30/19 06:00 Synthroid PO 150 mcg 0600 EZEQUIEL Administration Morphine Sulfate 2 mg 09/29/19 11:43 09/29/19 23:26 Morphine SLOW IVP 2 mg Q15MIN PRN Administration Severe Pain (7-10) Potassium Chloride 20 meq 09/29/19 11:43 09/29/19 17:35 Kcl IVPB 20 meq PRN PRN Administration K level </= 4.0 - Exam General Appearance: NAD Neck: supple, no JVD Heart: RRR, no gallops Respiratory: no rales, rhonchi Respiratory - other findings: chest tube + Gastrointestinal: soft, non-distended Extremities: no cyanosis Skin: normal turgor Neurological: no new deficit Hosp A/P - Plan DVT proph w/SCDs Unstable angina CAD s/p CABG 09/28 Obesity BMI 33.7 HTN HLD Hypothyroidism CARMELITA CKD 2 PLAN: Cont ASA/Statins On Coreg/Lisinopril Cont Levothyroxine DVT/GI prophylaxis Cont other meds as above
[2019-09-30] MEDS: Carvedilol 3.125 MG TAB PO SCH (17:30)
[2019-09-30] MEDS: Atorvastatin Calcium 40 MG TAB PO SCH (20:00)
[2019-09-30] MEDS: Potassium Chloride 20 MEQ/100 ML PREMIX BAG IVPB PRN (20:01)
[2019-09-30] MEDS ORDERED: Zolpidem Tartrate 5 MG TAB PO SCH (21:00)
[2019-10-01] MEDS: hydrALAZINE 20 MG/ML VIAL SLOW IVP PRN ×2 (04:04→11:32)
[2019-10-01 04:28] LABS: #Eosinphils 0.2 thou/uL (0.0-0.7); #Lymphocytes 2.2 thou/uL (1.20-3.40); #Monocytes 1.5 thou/uL (0.11-0.59); #Neutrophils 11.2 thou/uL (1.40-6.50); %Basophils 0.3 % (0.0-1.0); %Eosinophils 1.5 % (0.0-10.0); %Lymphocytes 14.4 % (21.0-51.0); %Neutrophils 73.8 % (42.0-75.0); Hemoglobin 11.8 g/dL (14.0-18.0); Mean Corpuscular HGB CONC 33.7 g/dL (32.0-36.0); Mean Corpuscular Hemoglobin 31.3 pg (27.0-31.0); Mean Corpuscular Volume 92.9 fL (78.0-98.0); Mean Platelet Volume 8.8 fL (7.4-10.4); Platelet Count 206 thou/uL (130-400); RBC Distribution Width 12.9 % (11.5-14.5); Red Blood Cell (RBC) Count 3.77 mill/uL (4.70-6.10); White Blood Cell (WBC) Count 15.2 thou/uL (4.8-10.8)
[2019-10-01 04:49] LABS: Anion Gap 13 mmol/L (10-20); BUN (Urea Nitrogen) 33 mg/dL (8.4-25.7); Calc. Creatinine Clearance 109 mL/min (70-130); Calcium 8.7 mg/dL (7.8-10.44); Carbon Dioxide 22 mmol/L (22-29); Chloride 105 mmol/L (98-107); Estimated GFR-MDRD 71; Glucose 107 mg/dL (70-105); Potassium 4.1 mmol/L (3.5-5.1); Sodium 136 mmol/L (136-145)
[2019-10-01] MEDS: Ketorolac Tromethamine 30 MG/ML VIAL IVP SCH ×4 (05:01→22:53)
[2019-10-01] MEDS: Levothyroxine 150 MCG TAB PO SCH (05:02)
[2019-10-01] MEDS: Carvedilol 3.125 MG TAB PO SCH (05:02)
[2019-10-01 06:02] VITALS: BMI 33.8
--- NOTE | 2019-10-01 08:53 | RAD ---
PORTABLE CHEST ONE VIEW: HISTORY: Postop open heart. FINDINGS: Scattered linear parenchymal changes in the right infrahilar region and left perihilar regions and le ft base, overall stable. No pneumothorax. IMPRESSION: Overall stable bilateral mostly perihilar and left lower lobe parenchymal changes. POS: [facility]
[2019-10-01] MEDS: Aspirin 325 MG TAB PO SCH (09:01)
[2019-10-01] MEDS: Lisinopril 5 MG TAB PO SCH (09:01)
[2019-10-01] MEDS ORDERED: Carvedilol 3.125 MG TAB PO SCH (11:00)
--- NOTE | 2019-10-01 14:57 | PDOC.HOSPP ---
- Subjective Encounter Date: 10/01/19 Encounter Time: 14:57 Subjective: Patient seen and examined for USA/CAD. No new complaints. No overnight events - Objective Vital Signs & Weight: Vital Signs (12 hours) Temp Pulse Pulse Pulse Resp BP BP 10/01/19 14:31 95 88 169/99 H 10/01/19 13:00 106 H 107 H 159/92 H 10/01/19 12:35 101 H 27 H 10/01/19 12:00 10/01/19 11:32 100 152/93 H 10/01/19 09:01 115 H 129/80 10/01/19 08:00 98.6 F 10/01/19 06:39 10/01/19 06:37 106 H 10/01/19 04:04 101 H 154/87 H 10/01/19 04:00 97.8 F BP Pulse Ox Pulse Ox Pulse Ox 10/01/19 14:31 150/91 H 98 94 L 10/01/19 13:00 142/99 H 10/01/19 12:35 95 10/01/19 12:00 95 10/01/19 11:32 10/01/19 09:01 10/01/19 08:00 95 10/01/19 06:39 94 L 10/01/19 06:37 94 L 10/01/19 04:04 10/01/19 04:00 Weight Weight 229 lb 1.218 oz Most Recent Monitor Data Heart Rate from ECG 94 NIBP 150/91 NIBP BP-Mean 110 Respiration from ECG 18 SpO2 93 I&O: 09/30/19 10/01/19 10/02/19 06:59 06:59 06:59 Intake Total 2097.5 2930 1040 Output Total 1740 1250 1065 Balance 357.5 1680 -25 Result Diagrams: 10/01/19 03:50 10/01/19 03:50 Additional Labs: Accuchecks 09/30/19 08:10 POC Glucose 132 H EKG Reviewed by me: Yes (Tele SR) Hospitalist ROS - Review of Systems Cardiovascular: denies: chest pain, palpitations, orthopnea, paroxysmal noc. dyspnea, edema, light headedness, other Gastrointestinal: denies: nausea, vomiting, abdominal pain, diarrhea, constipation, melena, hematochezia, other - Medication Medications: Active Medications Generic Name Dose Route Start Last Admin Trade Name Freq PRN Reason Stop Dose Admin Hydrocodone Bitart/Acetaminophen 1 tab 09/29/19 11:43 09/29/19 21:16 [place] 5/325 PO 1 tab Q4H PRN Administration Moderate Pain (4-6) Hydrocodone Bitart/Acetaminophen 2 tab 09/29/19 11:43 09/30/19 15:15 [place] 5/325 PO 2 tab Q4H PRN Administration Severe Pain (7-10) Albuterol/Ipratropium 3 ml 09/30/19 13:00 10/01/19 12:35 Duoneb EZPAP 3 ml [id number] EZQEUIEL Administration Aspirin 325 mg 09/30/19 09:00 10/01/19 09:01 Aspirin PO 325 mg DAILY EZEQUIEL Administration Atorvastatin Calcium 40 mg 09/30/19 21:00 09/30/19 20:00 Lipitor PO 40 mg HS EZEQUIEL Administration Hydralazine HCl 10 mg 09/29/19 11:43 10/01/19 11:32 Apresoline SLOW IVP 10 mg Q6H PRN Administration To Maintain SBP< 140mmHG Ketorolac Tromethamine 15 mg 09/29/19 12:00 10/01/19 11:33 Toradol IVP 10/02/19 12:01 15 mg Q6HR EZEQUIEL Administration Levothyroxine Sodium 150 mcg 09/30/19 06:00 10/01/19 05:02 Synthroid PO 150 mcg 0600 EZEQUIEL Administration Lisinopril 5 mg 10/01/19 09:00 10/01/19 09:01 Zestril PO 5 mg DAILY EZEQUIEL Administration Morphine Sulfate 2 mg 09/29/19 11:43 09/29/19 23:26 Morphine SLOW IVP 2 mg Q15MIN PRN Administration Severe Pain (7-10) Pantoprazole Sodium 40 mg 10/01/19 09:00 10/01/19 09:04 Protonix PO 40 mg DAILY EZEQUIEL Administration Potassium Chloride 20 meq 09/29/19 11:43 09/30/19 20:01 Kcl IVPB 20 meq PRN PRN Administration K level </= 4.0 Sodium Chloride 10 ml 09/30/19 21:00 10/01/19 09:05 Flush - Normal Saline IVF 10 ml Q12HR EZEQUIEL Administration Zolpidem Tartrate 10 mg 09/30/19 21:00 09/30/19 20:53 Ambien PO 10 mg HS EZEQUIEL Administration - Exam General Appearance: NAD Heart: RRR, no gallops Respiratory: no wheezes, rhonchi Gastrointestinal: non-tender, non-distended Extremities: no cyanosis Neurological: no new deficit Hosp A/P - Plan DVT proph w/SCDs Unstable angina CAD s/p CABG 09/28 Obesity BMI 33.7 HTN HLD Hypothyroidism CARMELITA CKD 2 PLAN: Cont ASA/Statins/Lisinopril Coreg dose increased Cont Levothyroxine and other meds as above DVT/GI prophylaxis
[2019-10-01] MEDS ORDERED: Artificial Tears 18 DROP/0.9 ML EA EYE PRN (15:58)
[2019-10-01] MEDS ORDERED: Bisacodyl 5 MG TAB PO PRN (15:58)
[2019-10-01] MEDS ORDERED: Mag-Al 1200 mg/1200 mg/30 ML UDCUP PO PRN (15:58)
[2019-10-01] MEDS ORDERED: Guaifenesin DM 100-10/5 ML UDCUP PO PRN (15:58)
[2019-10-01] MEDS ORDERED: diphenhydrAMINE 25 MG CAP PO PRN (15:58)
[2019-10-01] MEDS ORDERED: Nitroglycerin 0.4 MG TAB (25 Tab Bottle) SL PRN (15:58)
[2019-10-01] MEDS ORDERED: Bisacodyl 10 MG SUPP PR PRN (15:58)
[2019-10-01] MEDS ORDERED: Zolpidem Tartrate 5 MG TAB PO PRN (15:58)
[2019-10-01] MEDS ORDERED: Mineral Oil ENEMA PR PRN (15:58)
[2019-10-01] MEDS ORDERED: Potassium Chloride 10 MEQ TAB PO SCH (16:00)
[2019-10-01] MEDS ORDERED: Furosemide 40 MG TAB PO SCH (16:15)
[2019-10-01] MEDS: Carvedilol 6.25 MG TAB PO SCH (17:30)
[2019-10-01] MEDS: Atorvastatin Calcium 40 MG TAB PO SCH (19:29)
[2019-10-02] MEDS: Levothyroxine 150 MCG TAB PO SCH (04:47)
[2019-10-02] MEDS: Ketorolac Tromethamine 30 MG/ML VIAL IVP SCH ×2 (04:48→11:56)
[2019-10-02] MEDS ORDERED: Potassium Chloride 10 MEQ TAB PO SCH (08:00)
[2019-10-02] MEDS: Lisinopril 5 MG TAB PO SCH (08:47)
[2019-10-02] MEDS: Carvedilol 6.25 MG TAB PO SCH (08:47)
[2019-10-02] MEDS ORDERED: Aspirin 325 mg Enteric Coated Tablet PO SCH (09:00)
[2019-10-02] MEDS ORDERED: Furosemide 40 MG TAB PO SCH (09:00)
[2019-10-02 11:55] VITALS: BP 168/92; TEMP 99.2
--- NOTE | 2019-10-02 17:59 | DIS ---
DATE OF ADMISSION: 09/28/2019 DATE OF DISCHARGE: 10/02/2019 DISCHARGE DISPOSITION: Home. FOLLOWUP: 1. Follow up with primary care physician, Dr. Chilango Levin, in 1 week. 2. Follow up with Dr. Chen and Cardiology Dr. Justin Ann as scheduled. 3. Follow up with cardiac rehabilitation. ALLERGIES: NO KNOWN DRUG ALLERGIES. DISCHARGE MEDICATIONS: 1. Aspirin 325 mg daily. 2. Carvedilol 12.5 mg b.i.d. 3. Lasix 40 mg daily for next 5 days. 4. Hydralazine 50 mg b.i.d. 5. Crestor 5 mg on Wednesday, Wednesday, and Wednesday. 6. Potassium 20 mEq daily. 7. Losartan 100 mg daily. 8. Synthroid 150 mcg daily. 9. Fluticasone daily. 10. Fenofibrate 160 mg daily. 11. Lunesta 3 mg at bedtime. 12. Xopenex as needed. INPATIENT CONSULTANTS: 1. Cardiovascular, Miguelito Chen MD. 2. Cardiology, Konrad Dubon MD. BRIEF HOSPITAL COURSE: The patient is a 58-year-old male who presented at [facility] with chest discomfort. He underwent cardiac catheterization by Dr. Ann that was consistent with three-vessel disease. He was transferred to the [place] location for coronary artery bypass grafting. He underwent coronary artery bypass grafting on the 29 September 2019. Postoperatively, the patient has done well. He has been cleared by Cardiology for discharge. FINAL DIAGNOSES: 1. Chest discomfort/unstable angina. 2. Three-vessel disease, status post coronary artery bypass graft x4 this admission. 3. Obesity with a body mass index of 33.7. 4. Hypertension. 5. Hyperlipidemia. 6. Obstructive sleep apnea. 7. Hypothyroidism. 8. Chronic kidney disease stage 2. The patient understands the above plan of care. Job ID: [id number]
[2019-10-04 01:25] LABS: Actual Bicarbonate (HCO3a) 23.6 mEq/L (22-28); Analyzer IN Cardio OR; CO2 Tension 43.9 mmHg (35.0-45.0); Hemoglobin (Hb) 10.1 g/dL (14.0-18.0); O2 Tension (PaO2) 84.1 mmHg (80.0-100.0); Potassium - ABG Lab 3.98 mmol/L (3.70-5.30); pH, Arterial 7.35 (7.35-7.45)
[2019-10-04 01:26] LABS: Actual Bicarbonate (HCO3a) 22.1 mEq/L (22-28); Analyzer IN Cardio OR; CO2 Tension 39.5 mmHg (35.0-45.0); Calcium, Ionized 1.03 mmol/L (1.12-1.30); Carboxyhemoglobin (COHb) 0.3 gm% (0.0-3.0); O2 Tension (PaO2) 416.4 mmHg (80.0-100.0); Potassium - ABG Lab 4.38 mmol/L (3.70-5.30); pH, Arterial 7.37 (7.35-7.45)
[2019-10-04 01:26] LABS: Actual Bicarbonate (HCO3a) 20.2 mEq/L (22-28); Analyzer IN Cardio OR; Base Excess (BEa) -3.4 mEq/L (-2.0 to +3.0); CO2 Tension 31.3 mmHg (35.0-45.0); Calcium, Ionized 1.04 mmol/L (1.12-1.30); Carboxyhemoglobin (COHb) 0.1 gm% (0.0-3.0); Hemoglobin (Hb) 10.3 g/dL (14.0-18.0); O2 Tension (PaO2) 361.9 mmHg (80.0-100.0); Potassium - ABG Lab 4.23 mmol/L (3.70-5.30); pH, Arterial 7.43 (7.35-7.45)
[2019-10-04 01:27] LABS: Actual Bicarbonate (HCO3a) 22.2 mEq/L (22-28); Analyzer IN Cardio OR; Base Excess (BEa) -2.5 mEq/L (-2.0 to +3.0); CO2 Tension 38.4 mmHg (35.0-45.0); Calcium, Ionized 1.19 mmol/L (1.12-1.30); Carboxyhemoglobin (COHb) 0.9 gm% (0.0-3.0); Hemoglobin (Hb) 13.5 g/dL (14.0-18.0); O2 Tension (PaO2) 288.5 mmHg (80.0-100.0); Potassium - ABG Lab 3.54 mmol/L (3.70-5.30); pH, Arterial 7.38 (7.35-7.45)
[2019-10-04 01:27] LABS: Actual Bicarbonate (HCO3a) 21.1 mEq/L (22-28); Analyzer IN Cardio OR; Base Excess (BEa) -4.5 mEq/L (-2.0 to +3.0); CO2 Tension 40.8 mmHg (35.0-45.0); Calcium, Ionized 1.09 mmol/L (1.12-1.30); Carboxyhemoglobin (COHb) 0.5 gm% (0.0-3.0); Hemoglobin (Hb) 12.3 g/dL (14.0-18.0); O2 Tension (PaO2) 265.6 mmHg (80.0-100.0); Potassium - ABG Lab 3.76 mmol/L (3.70-5.30); pH, Arterial 7.33 (7.35-7.45)
[2019-10-04 01:28] LABS: Puncture Site ALINE
[2019-10-04 01:28] LABS: Puncture Site ALINE
[2019-10-04 01:28] LABS: Puncture Site ALINE
[2019-10-04 01:29] LABS: Puncture Site ALINE
[2019-10-04 01:31] LABS: Analyzer IN Cardio OR; Base Excess (BEa) -6.2 mEq/L (-2.0 to +3.0); CO2 Tension 56.4 mmHg (35.0-45.0); Calcium, Ionized 1.21 mmol/L (1.12-1.30); Carboxyhemoglobin (COHb) 0.3 gm% (0.0-3.0); Hemoglobin (Hb) 11.6 g/dL (14.0-18.0); O2 Tension (PaO2) 169.5 mmHg (80.0-100.0); Potassium - ABG Lab 4.14 mmol/L (3.70-5.30)
[2019-10-04 01:32] LABS: Puncture Site ALINE
[2019-10-04 01:32] LABS: Puncture Site ALINE; pH, Arterial 7.21 (7.35-7.45)
== END 2019-10-02 14:10 | disposition home or self-care (01) | DRG 236 ==
LOC: 2NO 11:12 → CCU 09-29 07:02 → 2NO 10-01 14:49
PROVIDERS: ADMIT Internal Medicine; ATTEND Internal Medicine
PROC: 02100Z9 Bypass Coronary Artery, One Artery from Left Internal Mammary, Open Approach (ICD-10-PCS; principal; 2019-09-29)
PROC: 021209W Bypass Coronary Artery, Three Arteries from Aorta with Autologous Venous Tissue, Open Approach (ICD-10-PCS; 2019-09-29)
PROC: 5A1221Z Performance of Cardiac Output, Continuous (ICD-10-PCS; 2019-09-29)
DX: I25.10 Atherosclerotic heart disease of native coronary artery without angina pectoris (principal); E03.9 Hypothyroidism, unspecified; G47.33 Obstructive sleep apnea (adult) (pediatric); I12.9 Hypertensive chronic kidney disease with stage 1 through stage 4 chronic kidney disease, or unspecified chronic kidney disease; N18.2 Chronic kidney disease, stage 2 (mild); E66.9 Obesity, unspecified; Z68.33 Body mass index [BMI] 33.0-33.9, adult
CPT/HCPCS: 36415; 36416; 36430; 71045; 80048; 82465; 82805; 83036; 83718; 84484; 85025; 85610; 85730; 86850; 86900; 86901; 93005; 93010; 93798; 93880; 94002; 94640; J0290; J0360; J0690; J1642; J1644; J1815; J1885; J2001; J2250; J2270; J2405; J2440; J2704; J2720; J3010; J3370; J3475; J3480; J7620; P9045; S0017; S0028

== ENCOUNTER 2024-06-22 15:13 | Emergency (ER) | payer OTHER ==
[2024-06-22 16:24] LABS: #Basophils Less than 0.03 10x3/uL (0.0-0.2); %Basophils 0.3 % (0.0-1.0); %Eosinophils 3.1 % (0.0-10.0); %Lymphocytes 31.8 % (21.0-51.0); %Monocytes 11.1 % (0.0-10.0); %Neutrophils 53.4 % (42.0-75.0); Hematocrit 42.9 % (42.0-52.0); Mean Corpuscular Volume 88.6 fL (78.0-98.0); Mean Platelet Volume 10.1 fL (7.4-10.4); Platelet Count 247 10x3/uL (130-400); RBC Distribution Width 13.4 % (11.5-14.5); Red Blood Cell (RBC) Count 4.84 mill/uL (4.70-6.10)
[2024-06-22 16:49] LABS: Phosphorus 3.1 mg/dL (2.3-4.7)
[2024-06-22 16:53] LABS: Bacteria/HPF None Seen HPF (None Seen); Bilirubin Negative (Negative); Blood, Urine Negative (Negative); CAUTI Indications for Culture Pelvic or flank pain; Clarity Clear (Clear); Glucose, Urine (Dipstick) Normal (Negative); Ketone, Urine Negative (Negative); Leukocyte Negative Leu/uL (Negative); Nitrite Negative (Negative); Protein, Urine (Dipstick) Negative (Neg-Trace); RBC/HPF None Seen HPF (0-3); Specific Gravity, Urine 1.016 (1.002-1.036); Squamous Epithelial None Seen HPF (0-3); Urobilinogen Normal mg/dL (Less than 2); WBC/HPF 0-3 HPF (0-3); pH, Urine 5.5 (5.0-9.0)
[2024-06-22 16:54] LABS: Actual Bicarbonate (HCO3v) 27.6 mEq/L (22-28); Base Excess 2.2 mEq/L (-2.0 to +3.0); Calcium, Ionized (venous) 1.58 mmol/L (1.16-1.32); Chloride (VBG) 100 mmol/L (98-106); Hematocrit-VBG 47 % (42.0-52.0); Hemoglobin (Hb) 16.1 g/dL (13.1-17.2); Potassium (VBG) 3.99 mmol/L (3.70-5.30); Sodium 140 mmol/L (133-146); pH (venous) 7.401 (7.32-7.43)
[2024-06-22 16:56] LABS: ALT (SGPT) 54 U/L (8-55); AST (SGOT) 39 U/L (5-34); Albumin 4.3 g/dL (3.4-4.8); Alkaline Phosphatase 31 U/L (40-110); Anion Gap 13 mmol/L (10-20); BUN (Urea Nitrogen) 51 mg/dL (8.4-25.7); Bilirubin, Total 0.5 mg/dL (0.2-1.2); Calc. Creatinine Clearance 0 mL/min (70-130); Calcium 13.4 mg/dL (7.8-10.44); Carbon Dioxide 26 mmol/L (23-31); Chloride 103 mmol/L (98-107); Estimated GFR 62; Globulin 3.1 g/dL (2.4-3.5); Glucose 99 mg/dL (80-115); Lipase 17 U/L (8-78); Potassium 3.8 mmol/L (3.5-5.1); Protein, Total 7.4 g/dL (5.8-8.1); Sodium 138 mmol/L (136-145)
[2024-06-22 16:59] LABS: Urine Culture Reflex No No
[2024-06-22] MEDS ORDERED: Zoledronic Acid 4 MG in Sodium Chloride 0.9% 100 ML IVPB SCH (18:30)
== END 2024-06-22 19:49 | disposition home or self-care (01) ==
LOC: ERS 15:13
DX: E83.52 Hypercalcemia (principal); I25.10 Atherosclerotic heart disease of native coronary artery without angina pectoris; I10 Essential (primary) hypertension; Z95.1 Presence of aortocoronary bypass graft
CPT/HCPCS: 36415; 80053; 81001; 82805; 83690; 83735; 83970; 84100; 85025; 93005; 96374; J3489

== ENCOUNTER 2025-05-02 12:19 | Outpatient (CLI) | payer MEDICARE, OTHER ==
[2025-05-02 13:41] LABS: Estimated GFR - POC 36.0
== END 2025-05-02 12:20 | disposition home or self-care (01) ==
LOC: SCSMRI 12:19
PROVIDERS: ATTEND Urology
DX: R97.20 Elevated prostate specific antigen [PSA] (principal)
CPT/HCPCS: 36415; 72197; 82565

== ENCOUNTER 2025-05-14 08:07 | Inpatient (IN) | payer MEDICARE, OTHER ==
[2025-05-14] MEDS ORDERED: Aspirin Chewable 81 MG TAB ONE (08:28)
[2025-05-14] MEDS ORDERED: Metoprolol Tartrate 5 MG (5 mL) VIAL ONE ×2 (08:38→09:09)
[2025-05-14 09:06] LABS: #Basophils 0.03 10x3/uL (0.0-0.2); #Eosinophils 0.10 10x3/uL (0.0-0.7); #Monocytes 1.82 10x3/uL (0.11-0.59); #Neutrophils 16.56 10x3/uL (1.40-6.50); %Basophils 0.1 % (0.0-1.0); %Eosinophils 0.5 % (0.0-10.0); %Lymphocytes 12.6 % (21.0-51.0); %Monocytes 8.5 % (0.0-10.0); %Neutrophils 77.3 % (42.0-75.0); Hematocrit 47.2 % (42.0-52.0); Hemoglobin 15.7 g/dL (14.0-18.0); Mean Corpuscular Hemoglobin 29.6 pg (27.0-31.0); Mean Corpuscular Volume 88.9 fL (78.0-98.0); Platelet Count 278 10x3/uL (130-400); Red Blood Cell (RBC) Count 5.31 mill/uL (4.70-6.10); White Blood Cell (WBC) Count 21.44 10x3/uL (4.8-10.8)
[2025-05-14 09:08] LABS: Bacteria/HPF None Seen HPF (None Seen); CAUTI Indications for Culture Dysuria,urgency,freq; Glucose, Urine (Dipstick) Normal (Negative); Leukocyte Negative Leu/uL (Negative); Protein, Urine (Dipstick) 50 mg/dL (Neg-Trace); RBC/HPF 0-3 HPF (0-3); Specific Gravity, Urine 1.025 (1.002-1.036); WBC/HPF 0-3 HPF (0-3)
[2025-05-14 09:09] LABS: Urine Culture Reflex No No
[2025-05-14] MEDS ORDERED: cefTRIAXone (ROCEPHIN) 2 GM VIAL ONE (09:20)
[2025-05-14] MEDS ORDERED: Adenosine 6 mg (2 mL) VIAL ONE ×2 (09:26→09:42)
[2025-05-14 09:27] LABS: ALT (SGPT) 91 U/L (Less than 45); AST (SGOT) 59 U/L (11-34); Albumin 3.6 g/dL (3.1-4.5); Alkaline Phosphatase 34 U/L (40-110); Anion Gap 16 mmol/L (10-20); BUN (Urea Nitrogen) 35 mg/dL (8.4-25.7); Bilirubin, Total 0.5 mg/dL (0.3-1.2); Calc. Creatinine Clearance 0 mL/min (70-130); Calcium 9.2 mg/dL (7.8-10.44); Carbon Dioxide 26 mmol/L (23-31); Chloride 106 mmol/L (98-107); Globulin 2.2 g/dL (2.4-3.5); Glucose 114 mg/dL (80-115); Lipase 34 U/L (8-78); Potassium 4.0 mmol/L (3.5-5.1); Sodium 144 mmol/L (136-145)
[2025-05-14] MEDS ORDERED: Enoxaparin 80 MG (0.8 mL) SYRINGE ONE (10:09)
[2025-05-14] MEDS ORDERED: Azithromycin 500 MG VIAL ONE (10:09)
[2025-05-14] MEDS ORDERED: dilTIAZem 25 MG/5 ML VIAL ONE ×2 (10:10→11:06)
[2025-05-14] MEDS ORDERED: Enoxaparin 40 MG (0.4 mL) SYRINGE ONE (10:10)
[2025-05-14] MEDS ORDERED: Furosemide 20 MG (2 mL) VIAL ONE (11:06)
[2025-05-14] MEDS ORDERED: Iopamidol-370 76% 500 ML MDV (1 ML CHARGE) ONE (12:49)
[2025-05-14] MEDS ORDERED: Acetaminophen 325 MG TAB PO PRN (13:05)
[2025-05-14 13:49] VITALS: BMI 37.4
[2025-05-14] MEDS: Digoxin 0.5 MG/2 ML AMP ONE (14:05)
[2025-05-14] MEDS: Digoxin 0.5 MG/2 ML AMP SLOW IVP SCH (14:05)
[2025-05-14] MEDS: Amiodarone 150 MG, Admixture Fee 1 EACH in Dextrose 5% in Water 100 ML IVPB SCH (14:10)
[2025-05-14 14:44] LABS: Actual Bicarbonate (HCO3v) 24.7 mEq/L (22-28); Base Excess 1.6 mEq/L (-2.0 to +3.0); Calcium, Ionized (venous) 1.11 mmol/L (1.16-1.32); Potassium (VBG) 3.44 mmol/L (3.70-5.30); Sodium 139 mmol/L (133-146)
[2025-05-15 03:28] LABS: #Basophils 0.04 10x3/uL (0.0-0.2); #Eosinophils 0.43 10x3/uL (0.0-0.7); #Monocytes 1.75 10x3/uL (0.11-0.59); #Neutrophils 11.70 10x3/uL (1.40-6.50); %Basophils 0.2 % (0.0-1.0); %Eosinophils 2.4 % (0.0-10.0); %Lymphocytes 21.7 % (21.0-51.0); %Monocytes 9.8 % (0.0-10.0); %Neutrophils 65.2 % (42.0-75.0); Hematocrit 48.2 % (42.0-52.0); Hemoglobin 16.2 g/dL (14.0-18.0); Mean Corpuscular Hemoglobin 29.7 pg (27.0-31.0); Mean Corpuscular Volume 88.4 fL (78.0-98.0); Platelet Count 249 10x3/uL (130-400); Red Blood Cell (RBC) Count 5.45 mill/uL (4.70-6.10); White Blood Cell (WBC) Count 17.93 10x3/uL (4.8-10.8)
[2025-05-15 04:34] LABS: Free T4 (Free Thyroxine) 1.2 ng/dL (0.70-1.48); Thyroid Stimulating Hormone 2.482 uIU/mL (0.35-4.94)
[2025-05-15 04:47] LABS: ALT (SGPT) 79 U/L (Less than 45); AST (SGOT) 56 U/L (11-34); Albumin 3.5 g/dL (3.1-4.5); Alkaline Phosphatase 34 U/L (40-110); Anion Gap 17 mmol/L (10-20); BUN (Urea Nitrogen) 25 mg/dL (8.4-25.7); Bilirubin, Total 0.9 mg/dL (0.3-1.2); Calc. Creatinine Clearance 132 mL/min (70-130); Calcium 8.9 mg/dL (7.8-10.44); Carbon Dioxide 24 mmol/L (23-31); Chloride 104 mmol/L (98-107); Globulin 2.3 g/dL (2.4-3.5); Glucose 107 mg/dL (80-115); Magnesium 1.8 mg/dL (1.6-2.6); Potassium 3.7 mmol/L (3.5-5.1); Sodium 141 mmol/L (136-145)
[2025-05-15] MEDS: Levothyroxine 150 MCG TAB PO SCH (05:32)
[2025-05-15] MEDS: Furosemide 20 MG (2 mL) VIAL SLOW IVP SCH (08:29)
[2025-05-15] MEDS: Carvedilol 25 MG TAB PO SCH (08:30)
[2025-05-15] MEDS: Aspirin 81 mg Enteric Coated Tablet PO SCH (08:30)
[2025-05-15] MEDS ORDERED: Furosemide 40 MG (4 mL) VIAL SLOW IVP SCH (09:00)
[2025-05-15] MEDS: cefTRIAXone\\ROCEPHIN 2 GM in Sodium Chloride 0.9% 100 ML IVPB SCH (09:59)
[2025-05-15] MEDS ORDERED: Lidocaine 1% (PF) 30 ML VIAL ONE (11:33)
[2025-05-15] MEDS ORDERED: Etomidate 40 MG (20 mL) VIAL ONE (11:33)
[2025-05-15] MEDS ORDERED: cefTRIAXone Sodium 2,000 MG in Syringe 0 ML IVPB SCH (12:00)
[2025-05-15] MEDS: Pantoprazole 40 MG VIAL IVP SCH (12:30)
[2025-05-15] MEDS ORDERED: PROPOFOL 200 MG/20 ML VIAL ONE (13:05)
[2025-05-15] MEDS: Vancomycin (BATCH) 2.5 GM in Premix 1 BAG IVPB SCH (15:50)
[2025-05-15] MEDS: cloNIDine 0.1 MG TAB PO SCH (16:53)
[2025-05-15] MEDS: Amiodarone 200 MG TAB PO SCH (20:25)
[2025-05-15] MEDS: Mupirocin 1 GM TUBE NASAL DECOLONIZATION NASAL SCH (20:26)
[2025-05-15] MEDS ORDERED: VANCOMYCIN 1.25 GM/250 ML BAG IVPB SCH (21:00)
[2025-05-16] MEDS: cloNIDine 0.1 MG TAB PO SCH (00:25)
[2025-05-16 04:58] LABS: #Basophils 0.03 10x3/uL (0.0-0.2); #Eosinophils 0.60 10x3/uL (0.0-0.7); #Monocytes 1.03 10x3/uL (0.11-0.59); #Neutrophils 7.18 10x3/uL (1.40-6.50); %Basophils 0.3 % (0.0-1.0); %Eosinophils 5.5 % (0.0-10.0); %Lymphocytes 18.6 % (21.0-51.0); %Monocytes 9.4 % (0.0-10.0); %Neutrophils 65.3 % (42.0-75.0); Hematocrit 47.0 % (42.0-52.0); Hemoglobin 15.8 g/dL (14.0-18.0); Mean Corpuscular Hemoglobin 29.9 pg (27.0-31.0); Mean Corpuscular Volume 89.0 fL (78.0-98.0); Platelet Count 222 10x3/uL (130-400); Red Blood Cell (RBC) Count 5.28 mill/uL (4.70-6.10); White Blood Cell (WBC) Count 10.98 10x3/uL (4.8-10.8)
[2025-05-16 05:14] LABS: ALT (SGPT) 58 U/L (Less than 45); AST (SGOT) 33 U/L (11-34); Albumin 3.4 g/dL (3.1-4.5); Alkaline Phosphatase 44 U/L (40-110); Anion Gap 13 mmol/L (10-20); BUN (Urea Nitrogen) 27 mg/dL (8.4-25.7); Bilirubin, Total 0.7 mg/dL (0.3-1.2); Calc. Creatinine Clearance 125 mL/min (70-130); Calcium 9.0 mg/dL (7.8-10.44); Carbon Dioxide 26 mmol/L (23-31); Chloride 106 mmol/L (98-107); Globulin 2.7 g/dL (2.4-3.5); Glucose 95 mg/dL (80-115); Potassium 3.4 mmol/L (3.5-5.1); Sodium 142 mmol/L (136-145)
[2025-05-16 05:15] LABS: Vancomycin, Random 8.9 ug/mL (See Comment)
[2025-05-16] MEDS: Vancomycin 1.5 GM / NS 500ML VIAL-2-BAG IVPB SCH (06:37)
[2025-05-16] MEDS: Vancomycin 1.25 GM / NS 250 ML VIAL-2-BAG IVPB SCH (07:17)
[2025-05-16] MEDS: Pantoprazole 40 MG VIAL IVP SCH (08:14)
[2025-05-16] MEDS: FLU (Fluad Triv) 25-26 (65UP)PF 45 MCG/0.5 ML Syringe IM ONE (08:16)
[2025-05-16] MEDS: Losartan 25 MG TAB PO SCH (09:53)
[2025-05-16] MEDS ORDERED: Carvedilol 6.25 MG TAB PO SCH (21:00)
[2025-05-17] MEDS: Valsartan 80 MG TAB PO SCH (04:48)
[2025-05-17 04:53] LABS: #Basophils 0.03 10x3/uL (0.0-0.2); #Eosinophils 0.52 10x3/uL (0.0-0.7); #Monocytes 0.94 10x3/uL (0.11-0.59); #Neutrophils 7.26 10x3/uL (1.40-6.50); %Basophils 0.3 % (0.0-1.0); %Eosinophils 4.8 % (0.0-10.0); %Lymphocytes 18.8 % (21.0-51.0); %Monocytes 8.6 % (0.0-10.0); %Neutrophils 66.6 % (42.0-75.0); Hematocrit 46.8 % (42.0-52.0); Hemoglobin 15.6 g/dL (14.0-18.0); Mean Corpuscular Hemoglobin 29.4 pg (27.0-31.0); Mean Corpuscular Volume 88.3 fL (78.0-98.0); Platelet Count 199 10x3/uL (130-400); Red Blood Cell (RBC) Count 5.30 mill/uL (4.70-6.10); White Blood Cell (WBC) Count 10.90 10x3/uL (4.8-10.8)
[2025-05-17 05:42] LABS: Anion Gap 17 mmol/L (10-20); BUN (Urea Nitrogen) 29 mg/dL (8.4-25.7); Calc. Creatinine Clearance 120 mL/min (70-130); Calcium 9.0 mg/dL (7.8-10.44); Carbon Dioxide 20 mmol/L (23-31); Chloride 109 mmol/L (98-107); Glucose 97 mg/dL (80-115); Potassium 3.5 mmol/L (3.5-5.1); Sodium 142 mmol/L (136-145); Vancomycin, Random 11.3 ug/mL (See Comment)
[2025-05-17] MEDS ORDERED: Valsartan 80 MG TAB PO SCH (09:00)
[2025-05-17] MEDS ORDERED: Losartan 25 MG TAB PO SCH (09:00)
[2025-05-17] MEDS ORDERED: Sodium Bicarbonate 2.5 MEQ/5 ML SDV ONE (09:38)
[2025-05-17] MEDS ORDERED: Lidocaine 1% w/Epinephrine 1:100K 20 ML VIAL ONE (09:38)
[2025-05-18 04:21] LABS: #Basophils 0.04 10x3/uL (0.0-0.2); #Eosinophils 0.41 10x3/uL (0.0-0.7); #Monocytes 1.10 10x3/uL (0.11-0.59); #Neutrophils 6.74 10x3/uL (1.40-6.50); %Basophils 0.4 % (0.0-1.0); %Eosinophils 4.1 % (0.0-10.0); %Lymphocytes 16.4 % (21.0-51.0); %Monocytes 11.0 % (0.0-10.0); %Neutrophils 67.4 % (42.0-75.0); Hematocrit 44.4 % (42.0-52.0); Hemoglobin 15.3 g/dL (14.0-18.0); Mean Corpuscular Hemoglobin 29.8 pg (27.0-31.0); Mean Corpuscular Volume 86.5 fL (78.0-98.0); Platelet Count 210 10x3/uL (130-400); Red Blood Cell (RBC) Count 5.13 mill/uL (4.70-6.10); White Blood Cell (WBC) Count 10.00 10x3/uL (4.8-10.8)
[2025-05-18 04:37] LABS: Anion Gap 14 mmol/L (10-20); BUN (Urea Nitrogen) 25 mg/dL (8.4-25.7); Calc. Creatinine Clearance 130 mL/min (70-130); Calcium 9.2 mg/dL (7.8-10.44); Carbon Dioxide 20 mmol/L (23-31); Chloride 109 mmol/L (98-107); Glucose 97 mg/dL (80-115); Potassium 3.5 mmol/L (3.5-5.1); Sodium 139 mmol/L (136-145)
[2025-05-18] MEDS: Valsartan 80 MG TAB PO SCH (08:42)
[2025-05-18 12:52] VITALS: BP 167/84; TEMP 97.9
[2025-05-24] MEDS ORDERED: Amiodarone 200 MG TAB PO SCH (09:00)
== END 2025-05-18 15:15 | disposition home or self-care (01) | DRG 871 ==
LOC: ERS 08:07 → IMCU/EMU 12:30 → 2NO 05-16 12:15
PROVIDERS: ADMIT Internal Medicine; ATTEND Internal Medicine
PROC: 3E03329 Introduction of Other Anti-infective into Peripheral Vein, Percutaneous Approach (ICD-10-PCS; 2025-05-14)
PROC: 3E02340 Introduction of Influenza Vaccine into Muscle, Percutaneous Approach (ICD-10-PCS; 2025-05-14)
PROC: 5A2204Z Restoration of Cardiac Rhythm, Single (ICD-10-PCS; principal; 2025-05-15)
PROC: 5A09357 Assistance with Respiratory Ventilation, Less than 24 Consecutive Hours, Continuous Positive Airway Pressure (ICD-10-PCS; 2025-05-15)
PROC: 02HV33Z Insertion of Infusion Device into Superior Vena Cava, Percutaneous Approach (ICD-10-PCS; 2025-05-17)
PROC: B5181ZZ Fluoroscopy of Superior Vena Cava using Low Osmolar Contrast (ICD-10-PCS; 2025-05-17)
PROC: 3E04329 Introduction of Other Anti-infective into Central Vein, Percutaneous Approach (ICD-10-PCS; 2025-05-17)
DX: A41.89 Other specified sepsis (principal); I21.A1 Myocardial infarction type 2; J18.9 Pneumonia, unspecified organism; J96.01 Acute respiratory failure with hypoxia; I48.92 Unspecified atrial flutter; I11.0 Hypertensive heart disease with heart failure; I25.10 Atherosclerotic heart disease of native coronary artery without angina pectoris; E03.9 Hypothyroidism, unspecified; E78.5 Hyperlipidemia, unspecified; I35.8 Other nonrheumatic aortic valve disorders; I34.0 Nonrheumatic mitral (valve) insufficiency; G47.33 Obstructive sleep apnea (adult) (pediatric); F17.210 Nicotine dependence, cigarettes, uncomplicated; I25.2 Old myocardial infarction; Z98.890 Other specified postprocedural states; Z95.5 Presence of coronary angioplasty implant and graft; Z95.1 Presence of aortocoronary bypass graft; Z79.899 Other long term (current) drug therapy; Z79.02 Long term (current) use of antithrombotics/antiplatelets; Z23 Encounter for immunization
CPT/HCPCS: 36415; 36573; 71045; 71275; 80048; 80053; 80202; 81001; 82805; 83605; 83690; 83735; 83880; 84439; 84443; 84484; 85025; 87040; 87076; 87077; 87149; 87186; 87428; 92960; 93005; 93312; 96365; 96372; 96374; 96375; 96376; C1751; J0153; J0282; J0456; J0696; J1160; J1650; J1940; J2003; J2250; J2470; J2704; J3373; J7030; J7070; Q9967

== ENCOUNTER 2025-05-25 20:43 | Emergency (ER) | payer MEDICARE, OTHER | END 2025-05-25 22:20 | disposition home or self-care (01) | LOC: ERS 20:43 | DX: R78.81 Bacteremia (principal); I25.10 Atherosclerotic heart disease of native coronary artery without angina pectoris; I25.2 Old myocardial infarction; I10 Essential (primary) hypertension | CPT/HCPCS: 99281 ==